=== PATIENT | female | born 1965 | race American Indian/Alaskan Native ===

== ENCOUNTER 2020-12-29 10:39 | Outpatient (CLI) | payer OTHER ==
--- NOTE | 2020-12-29 13:53 | XRay Report ---
Lumbar spine 3 views INDICATION: Low back pain IMPRESSION: Mild multilevel discogenic and facet arthropathy without significant neural foraminal herson nosis. Prior cholecystectomy noted. No acute fracture or subluxation is identified. Signer Name: Ever Good MD Signed: 12/29/2020 1:48 PM Workstation Name: [id number]
--- NOTE | 2020-12-29 13:53 | XRay Report ---
Knee bilateral 4 views INDICATION: Bilateral knee pain. IMPRESSION: Mild degenerative changes of the knees primarily involving the medial femorotibial compar tments bilaterally. Small bilateral knee effusions are present. Signer Name: Ever Good MD Signed: 12/29/2020 1:49 PM Workstation Name: [id number]
== END 2020-12-29 10:40 | disposition home or self-care (01) ==
LOC: XRAY 10:39
PROVIDERS: ATTEND Internal Medicine
DX: M17.0 Bilateral primary osteoarthritis of knee (principal); M25.461 Effusion, right knee; M25.462 Effusion, left knee; M47.816 Spondylosis without myelopathy or radiculopathy, lumbar region; M51.36 Other intervertebral disc degeneration, lumbar region
CPT/HCPCS: 72100